=== PATIENT | male | born 1950 | race Caucasian/White ===

== ENCOUNTER 2021-11-14 16:44 | Inpatient (IN) | payer OTHER ==
[~2021-11-14] VITALS: Ht 188 cm; Wt 120.7 kg
[2021-11-14] MEDS ORDERED: 0.9% NACL 250ML 250 ML IV ONE (17:30)
[2021-11-14 17:36] LABS: MEAN CORPUSCULAR HEMOGLOBIN 29.5 pg (27.0-33.0); MEAN CORPUSCULAR VOLUME 89.1 fL (79-99); PLATELET COUNT (AUTO) 114 K/uL (130-400); RED BLOOD CELL COUNT(AUTO) 2.58 MIL/uL (4.50-6.20); RED CELL DISTRIBUTION WIDTH 13.7 % (11.0-15.5); WHITE BLOOD COUNT (AUTO) 3.1 K/uL (4.8-10.8)
[2021-11-14 17:43] LABS: CREATININE 2.9 mg/dL (0.5-1.5); POTASSIUM 4.4 mmol/L (3.5-5.1)
[2021-11-14 17:44] LABS: INR 1.05 (0.85-1.15); PROTHROMBIN TIME 11.4 SEC (9.6-11.6)
[2021-11-14 17:46] LABS: PARTIAL THROMBOPLASTIN TIME 25.4 SEC (26.3-35.5)
[2021-11-14 17:47] LABS: ALBUMIN 3.3 g/dL (3.5-5.0); BILIRUBIN,TOTAL 0.3 mg/dL (0.2-1.0)
[2021-11-14 18:10] LABS: BAND NEUTROPHILS % (MANUAL) 4 % (0-2); EOSINOPHILS % (MANUAL) 5 % (1-6); LYMPHOCYTES % (MANUAL) 19 % (22-44); MAN.DIFF COMMENT-IMPRESSION MANUAL DIFFERENTIAL; MONOCYTES % (MANUAL) 7 % (2-9); REACTIVE LYMPHOCYTES 3 % (0-0); SEGMENTED NEUTROPHILS % 62 % (40-70)
[2021-11-14 18:12] LABS: PLATELET MORPHOLOGY COMMENT SLIGHTLY DECREASED
[2021-11-14] MEDS: 0.9%NACL 1000ML 1,000 ML IV SCH (18:30)
[2021-11-14] MEDS ORDERED: GUAIFENESIN SUGAR-FREE 100 MG/5 ML UDCUP PO PRN (18:30)
[2021-11-14] MEDS ORDERED: LACTULOSE 20 GM/30 ML UDCUP PO PRN (18:30)
[2021-11-14] MEDS ORDERED: ZOLPIDEM TARTRATE 5 MG TAB PO PRN (18:30)
[2021-11-14] MEDS ORDERED: ACETAMINOPHEN 325 MG TAB PO PRN ×2 (18:30)
[2021-11-14] MEDS ORDERED: DIPHENHYDRAMINE HCL 25 MG CAPSULE PO PRN (18:30)
[2021-11-14] MEDS ORDERED: CLONIDINE HCL 0.1 MG TABLET PO PRN (18:30)
[2021-11-14] MEDS ORDERED: DiphenhydrAMINE HCL 50 MG/ML VIAL IVP PRN (18:30)
[2021-11-14] MEDS ORDERED: NITROGLYCERIN 0.4 MG SL TAB SL PRN (18:30)
[2021-11-14] MEDS ORDERED: ONDANSETRON 4MG INJ IVP PRN (18:30)
[2021-11-14] MEDS ORDERED: MAG/ALUM/SIMETH 30 ML UDCUP PO PRN (18:30)
[2021-11-14] MEDS: INSULIN HUMULIN R 100 UNIT/ML 3ML SQ SCH (21:00)
[2021-11-14 22:10] LABS: PHOSPHORUS 3.4 mg/dL (2.5-4.9)
[2021-11-14 23:08] LABS: HEMATOCRIT 22.8 % (42-54); MEAN CORPUSCULAR HEMOGLOBIN 29.9 pg (27.0-33.0); MEAN CORPUSCULAR HGB CONC 34.2 g/dL (32.0-36.0); MEAN CORPUSCULAR VOLUME 87.4 fL (79-99); RED BLOOD CELL COUNT(AUTO) 2.61 MIL/uL (4.50-6.20); RED CELL DISTRIBUTION WIDTH 13.6 % (11.0-15.5)
[2021-11-15] VITALS (15 sets, daily range): BP systolic 130–175; BP diastolic 54–97
[2021-11-15] MEDS ORDERED: DILT120C43 PO (00:14)
[2021-11-15] MEDS ORDERED: LOSA50TA64 PO (00:14)
[2021-11-15] MEDS ORDERED: ATOR-2 PO (00:14)
[2021-11-15] MEDS ORDERED: SPIR25TA6 PO (00:14)
[2021-11-15] MEDS ORDERED: CARV25TA PO (00:14)
[2021-11-15] MEDS ORDERED: HYDR100T27 PO (00:14)
[2021-11-15] MEDS ORDERED: FERR-72 PO (00:14)
[2021-11-15] MEDS ORDERED: FOLI0.8T3 PO (00:14)
[2021-11-15 05:33] LABS: BILIRUBIN,TOTAL 0.4 mg/dL (0.2-1.0); CREATININE 2.8 mg/dL (0.5-1.5); TOTAL PROTEIN, SERUM 6.5 g/dL (6.0-8.3)
[2021-11-15] MEDS: INSULIN HUMULIN R 100 UNIT/ML 3ML SQ SCH ×4 (06:20→21:00)
[2021-11-15] MEDS: Vitamin B Complex/Vit C/Folic Acid PO SCH (08:40)
[2021-11-15] MEDS ORDERED: LIDOCAINE PF 100MG/5ML (2%) SYRINGE 5ML ONE (11:47)
[2021-11-15] MEDS ORDERED: PROPOFOL 10 MG/ML 20ML VIAL IV ONE (11:47)
[2021-11-15] MEDS ORDERED: COMPOUND IV MISC 1 EACH IVSOLN MISC PRN (14:30)
[2021-11-15] MEDS: 0.9%NACL 1000ML 1,000 ML IV SCH (14:30)
[2021-11-15 17:35] LABS: APPEARANCE,URINE CLEAR (CLEAR); BILIRUBIN,URINE NEGATIVE (NEGATIVE); COLOR,URINE YELLOW (YELLOW); GLUCOSE, URINE (UA) 100 mg/dL (NEGATIVE); KETONES,URINE NEGATIVE (NEGATIVE); LEUKOCYTE ESTERASE ,URINE NEGATIVE (NEGATIVE); NITRATE,URINE NEGATIVE (NEGATIVE); OCCULT BLOOD,URINE NEGATIVE (NEGATIVE); PH,URINE 6.5 (5.0-8.0); PROTEIN,URINE 100 mg/dL (NEGATIVE); UROBILINOGEN,URINE 0.2 mg/dL (0.2-1.0)
[2021-11-15 17:53] LABS: BACTERIA,URINE Few /HPF (None Seen); RBC,URINE 0-1 /HPF (0-1); SQUAMOUS EPITHELIAL CELL,UR Few /HPF (0-2); WBC,URINE 0-1 /HPF (0-1)
[2021-11-15 18:25] LABS: RETICULOCYTE % (AUTO) 1.4 % (0.42-2.23)
[2021-11-15] MEDS ORDERED: LABETALOL 20MG VIAL IV PRN (18:30)
[2021-11-15] MEDS ORDERED: TEMAZEPAM 7.5 MG CAPSULE PO PRN (18:30)
[2021-11-15] MEDS ORDERED: DILTIAZEM 120MG SR CAP PO SCH (18:30)
[2021-11-15] MEDS ORDERED: CARVEDILOL 25 MG TABLET PO ONE (18:30)
[2021-11-15] MEDS ORDERED: TAMSULOSIN HCL 0.4 MG CAP.ER.24H PO SCH (18:30)
[2021-11-15 18:36] LABS: HEMATOCRIT 21.4 % (42-54)
[2021-11-15 19:01] LABS: % IRON SATURATION 27.6 % (30-44)
[2021-11-15 19:06] LABS: THYROID STIMULATING HORMONE 1.31 uIU/mL (0.36-3.74)
[2021-11-15] MEDS ORDERED: IRON SUCROSE COMPLEX 300 MG in 0.9% NACL 250ML IV SCH (20:30)
[2021-11-15] MEDS: EPOETIN ALFA-EPBX (NON-ESRD) 10,000 UNIT/ML VIAL SQ SCH ×2 (21:00→21:30)
[2021-11-15] MEDS: CARVEDILOL 25 MG TABLET PO SCH (21:00)
[2021-11-15] MEDS: DOXAZOSIN MESYLATE 2 MG TABLET PO SCH (21:28)
[2021-11-16 03:26] VITALS: BP 134/63
[2021-11-16 03:43] LABS: PROTEIN,URINE RANDOM 479.2 mg/dL (0-11.9)
[2021-11-16 05:26] LABS: MEAN CORPUSCULAR HEMOGLOBIN 28.9 pg (27.0-33.0); MEAN CORPUSCULAR HGB CONC 33.3 g/dL (32.0-36.0); MEAN CORPUSCULAR VOLUME 86.8 fL (79-99); PLATELET COUNT (AUTO) 108 K/uL (130-400); RED BLOOD CELL COUNT(AUTO) 2.35 MIL/uL (4.50-6.20); RED CELL DISTRIBUTION WIDTH 13.5 % (11.0-15.5); WHITE BLOOD COUNT (AUTO) 2.6 K/uL (4.8-10.8)
[2021-11-16 05:44] LABS: HEMATOCRIT 20.4 % (42-54)
[2021-11-16 05:50] LABS: CREATININE 2.8 mg/dL (0.5-1.5); PHOSPHORUS 4.1 mg/dL (2.5-4.9); POTASSIUM 3.8 mmol/L (3.5-5.1)
[2021-11-16] MEDS: INSULIN HUMULIN R 100 UNIT/ML 3ML SQ SCH ×4 (05:51→19:56)
[2021-11-16 07:43] LABS: EOSINOPHILS % (MANUAL) 2 % (1-6); LYMPHOCYTES % (MANUAL) 26 % (22-44); MAN.DIFF COMMENT-IMPRESSION MANUAL DIFFERENTIAL; MONOCYTES % (MANUAL) 1 % (2-9); SEGMENTED NEUTROPHILS % 71 % (40-70)
[2021-11-16 07:44] LABS: PLATELET MORPHOLOGY COMMENT ADEQUATE
[2021-11-16] MEDS ORDERED: DILTIAZEM HCL 120 MG PO SCH (09:00)
[2021-11-16] MEDS ORDERED: DILTIAZEM 120MG SR CAP PO SCH (09:00)
[2021-11-16] MEDS ORDERED: Vitamin B Complex/Vit C/Folic Acid PO SCH (09:00)
[2021-11-16] MEDS: TAMSULOSIN HCL 0.4 MG CAP.ER.24H PO SCH (09:09)
[2021-11-16] MEDS: Vitamin B Complex/Vit C/Folic Acid PO SCH (09:09)
[2021-11-16] MEDS: CARVEDILOL 25 MG TABLET PO SCH ×2 (09:14→19:52)
[2021-11-16] MEDS: DOXAZOSIN MESYLATE 2 MG TABLET PO SCH ×2 (09:16→19:52)
[2021-11-16] MEDS: FOLIC ACID 1 MG TABLET PO SCH (09:16)
[2021-11-16 09:26] VITALS: BP 173/71
[2021-11-16] MEDS: 0.9%NACL 1000ML 1,000 ML IV SCH ×2 (10:30→19:59)
[2021-11-16 11:34] VITALS: BP 110/65
[2021-11-16] MEDS ORDERED: IRON SUCROSE COMPLEX 300 MG in 0.9% NACL 250ML 250 ML IV SCH (13:00)
[2021-11-16] MEDS ORDERED: NIFEDIPINE 10 MG CAP PO SCH (14:00)
[2021-11-16] MEDS ORDERED: MIDAZOLAM HCL 1 MG/ML 2ML VIAL ONE (14:42)
[2021-11-16] MEDS ORDERED: FENTANYL CITRATE PF 50 MCG/1 ML 2ML VIAL ONE (14:42)
[2021-11-16] MEDS ORDERED: LIDOCAINE HCL MPF 1% 5ML VIAL ONE (14:44)
[2021-11-16 16:24] VITALS: BP 153/66
[2021-11-16 20:00] VITALS: BP 164/68
[2021-11-16] MEDS ORDERED: EPOETIN ALFA-EPBX (NON-ESRD) 10,000 UNIT/ML VIAL SQ SCH (21:00)
[2021-11-16] MEDS ORDERED: EPOETIN ALFA-EPBX (ESRD) 10,000 UNIT/ML VIAL SQ SCH (21:00)
[2021-11-16 23:08] LABS: HEMATOCRIT 22.9 % (42-54)
[2021-11-16 23:42] VITALS: BP 178/70
[2021-11-17 04:00] VITALS: BP 166/66
[2021-11-17 04:59] LABS: HEMATOCRIT 22.7 % (42-54); MEAN CORPUSCULAR HEMOGLOBIN 29.5 pg (27.0-33.0); MEAN CORPUSCULAR HGB CONC 34.4 g/dL (32.0-36.0); PLATELET COUNT (AUTO) 111 K/uL (130-400); RED BLOOD CELL COUNT(AUTO) 2.64 MIL/uL (4.50-6.20); RED CELL DISTRIBUTION WIDTH 13.4 % (11.0-15.5)
[2021-11-17 05:15] LABS: CREATININE 2.7 mg/dL (0.5-1.5); MAGNESIUM 1.8 mg/dL (1.80-2.40); PHOSPHORUS 3.9 mg/dL (2.5-4.9); POTASSIUM 3.6 mmol/L (3.5-5.1)
[2021-11-17 05:43] LABS: BASOPHILS % (MANUAL) 1 % (0-2); EOSINOPHILS % (MANUAL) 5 % (1-6); LYMPHOCYTES % (MANUAL) 30 % (22-44); MONOCYTES % (MANUAL) 9 % (2-9); SEGMENTED NEUTROPHILS % 55 % (40-70)
[2021-11-17 05:44] LABS: MAN.DIFF COMMENT-IMPRESSION MANUAL DIFFERENTIAL; PLATELET MORPHOLOGY COMMENT SLIGHTLY DECREASED
[2021-11-17] MEDS: INSULIN HUMULIN R 100 UNIT/ML 3ML SQ SCH ×2 (05:56→11:30)
[2021-11-17 08:00] VITALS: BP 162/69
[2021-11-17] MEDS: Vitamin B Complex/Vit C/Folic Acid PO SCH (09:00)
[2021-11-17] MEDS: FOLIC ACID 1 MG TABLET PO SCH (09:00)
[2021-11-17] MEDS: DOXAZOSIN MESYLATE 2 MG TABLET PO SCH (09:15)
[2021-11-17] MEDS: TAMSULOSIN HCL 0.4 MG CAP.ER.24H PO SCH (09:15)
[2021-11-17] MEDS: CARVEDILOL 25 MG TABLET PO SCH (09:18)
[2021-11-17 12:00] VITALS: BP 181/72
[2021-11-17] MEDS ORDERED: MAGNESIUM 2GM PREMIX 50ML 50 ML IV PRN (13:00)
[2021-11-17] MEDS ORDERED: TAMS-1 PO (14:02)
[2021-11-17] MEDS ORDERED: CARV25TA PO (14:02)
[2021-11-17] MEDS ORDERED: DOXA2TAB2 PO (14:02)
== END 2021-11-17 17:30 | disposition home or self-care (01) | DRG 378 ==
LOC: EDH 16:44 → EDHIP 16:45 → 3BH 22:20
PROVIDERS: ADMIT Internal Medicine; ATTEND Internal Medicine
PROC: 0DB68ZX Excision of Stomach, Via Natural or Artificial Opening Endoscopic, Diagnostic (ICD-10-PCS; principal; 2021-11-15)
PROC: 30233N1 Transfusion of Nonautologous Red Blood Cells into Peripheral Vein, Percutaneous Approach (ICD-10-PCS; 2021-11-16)
PROC: 07DR3ZX Extraction of Iliac Bone Marrow, Percutaneous Approach, Diagnostic (ICD-10-PCS; 2021-11-16)
DX: K29.71 Gastritis, unspecified, with bleeding (principal); D62 Acute posthemorrhagic anemia; N17.9 Acute kidney failure, unspecified; I48.92 Unspecified atrial flutter; E87.1 Hypo-osmolality and hyponatremia; D61.818 Other pancytopenia; I12.9 Hypertensive chronic kidney disease with stage 1 through stage 4 chronic kidney disease, or unspecified chronic kidney disease; N18.30 Chronic kidney disease, stage 3 unspecified; D69.6 Thrombocytopenia, unspecified; Z79.01 Long term (current) use of anticoagulants; Z20.822 Contact with and (suspected) exposure to COVID-19; K29.70 Gastritis, unspecified, without bleeding; E11.22 Type 2 diabetes mellitus with diabetic chronic kidney disease; E78.5 Hyperlipidemia, unspecified; E11.65 Type 2 diabetes mellitus with hyperglycemia; E66.9 Obesity, unspecified; Z68.34 Body mass index [BMI] 34.0-34.9, adult; I25.10 Atherosclerotic heart disease of native coronary artery without angina pectoris; E78.00 Pure hypercholesterolemia, unspecified; G89.29 Other chronic pain; M54.9 Dorsalgia, unspecified
CPT/HCPCS: 36415; 36430; 38222; 43239; 80048; 80053; 81001; 82270; 82306; 82570; 82607; 82728; 82746; 82948; 83540; 83550; 83735; 83930; 83935; 84100; 84156; 84300; 84443; 84550; 85014; 85018; 85025; 85027; 85045; 85610; 85730; 86200; 86334; 86850; 86900; 86901; 86923; 87635; 99152; 99153; A4606; G0378; J1756; J1815; J2001; J2250; J2704; J3010; J3475; J3490; J7030; J7050; P9016

== ENCOUNTER → 2022-11-15 | Outpatient (CLI) | payer OTHER ==
[~2022-11-15] MED LIST: ATOR-2 PO; CARV25TA PO; DILT120C43 PO; DOXA2TAB2 PO; FOLI0.8T3 PO; TAMS-1 PO
== END | disposition home or self-care (01) ==
LOC: SHCH 14:37
PROVIDERS: ATTEND Internal Medicine Cardiovascular Disease
DX: I87.2 Venous insufficiency (chronic) (peripheral) (principal)
CPT/HCPCS: 93970

== ENCOUNTER 2023-12-06 09:10 | Emergency (ER) | payer OTHER ==
[~2023-12-06] VITALS: Ht 188 cm; Wt 122.5 kg
[~2023-12-06 09:10] MED LIST changes: +AEC81 PO; -ATOR-2 PO; -DILT120C43 PO; -DOXA2TAB2 PO; +FERR-72 PO; +FOLI0.8T2 PO; +HYDR100T27 PO; +NIFE90TA65 PO; +SODI650T PO
[2023-12-06 09:28] LABS: EOSINOPHILS # (AUTO) 0.08 K/uL (0.00-0.70); HEMATOCRIT 30.2 % (42-54); IMMATURE GRANULOCYTE ABSOLUTE 0.01 K/uL (0-1); LYMPHOCYTES # (AUTO) 0.6 K/uL (1.0-4.8); LYMPHOCYTES % (AUTO) 14.5 % (21.0-51.0); MEAN CORPUSCULAR HEMOGLOBIN 29.6 pg (27.0-33.0); MEAN CORPUSCULAR HGB CONC 33.4 g/dL (32.0-36.0); MEAN CORPUSCULAR VOLUME 88.6 fL (79-99); MONOCYTES # (AUTO) 0.5 K/uL (0.1-1.0); NEUTROPHILS # (AUTO) 2.9 K/uL (1.8-7.7); NEUTROPHILS % (AUTO) 71.3 % (40.0-77.0); PLATELET COUNT (AUTO) 147 K/uL (130-400); RED BLOOD CELL COUNT(AUTO) 3.41 MIL/uL (4.50-6.20)
[2023-12-06 09:49] LABS: INR 0.94 (0.85-1.15); PROTHROMBIN TIME 11.1 SEC (9.6-11.6)
[2023-12-06 09:50] LABS: B-TYPE NATRIURETIC PEPTIDE 217 pg/mL (0-100)
[2023-12-06 10:01] LABS: CREATININE 4.6 mg/dL (0.5-1.3); POTASSIUM 3.9 mmol/L (3.5-5.1)
[2023-12-06 10:08] LABS: ALBUMIN 3.4 g/dL (3.5-5.0); BILIRUBIN,TOTAL 0.6 mg/dL (0.2-1.0); TOTAL PROTEIN, SERUM 7.9 g/dL (6.0-8.3)
[2023-12-06] MEDS: MECLIZINE HCL 25 MG TABLET PO ONE (12:39)
[2023-12-06] MEDS: FUROSEMIDE 40MG VIAL IV ONE (12:39)
[2023-12-06 14:12] VITALS: BP 167/74; PULSE 70; RESP 18; O2SAT 96
== END 2023-12-06 14:27 | disposition home or self-care (01) ==
LOC: EDH 09:10
DX: H81.10 Benign paroxysmal vertigo, unspecified ear (principal); R20.2 Paresthesia of skin; I20.89 Other forms of angina pectoris; I13.0 Hypertensive heart and chronic kidney disease with heart failure and stage 1 through stage 4 chronic kidney disease, or unspecified chronic kidney disease; E11.22 Type 2 diabetes mellitus with diabetic chronic kidney disease; N18.9 Chronic kidney disease, unspecified; I50.9 Heart failure, unspecified; I48.91 Unspecified atrial fibrillation; Z79.899 Other long term (current) drug therapy
CPT/HCPCS: 99285; 96374; 70450; 71045; 84484 ×2; 80053; 83880; 85025; 85610; 36415; 93005; J1940